=== PATIENT | male | born 1960 | race Caucasian/White ===

== ENCOUNTER 2016-07-05 12:53 | Inpatient (IN) | payer MEDICAID ==
[~2016-07-05] VITALS: Ht 180.3 cm; Wt 92.2 kg
[2016-07-05] MEDS ORDERED: OPTIRAY 350 100 ML VIAL HMH IV ONE (13:22)
[2016-07-05] MEDS ORDERED: ASPIRIN 300 MG SUPP RECTAL ONE (14:06)
[2016-07-05] MEDS ORDERED: SALINE FLUSH 10 ML FLUSH PRN (15:35)
[2016-07-05] MEDS ORDERED: GLUCAGON 1 MG VIAL IM PRN (15:35)
[2016-07-05] MEDS ORDERED: ONDANSETRON 4 MG VIAL IV PUSH PRN (15:35)
[2016-07-05] MEDS ORDERED: DEXTROSE 50% SYRINGE 50 ML IV PRN (15:35)
[2016-07-05] MEDS ORDERED: ACETAMINOPHEN 325 MG TAB PO PRN (15:35)
[2016-07-05 17:38] VITALS: BP_SYST 165; BP_SYST 190; TEMP 98.1
[2016-07-05 17:39] VITALS: BP_SYST 150; RESP 20
[2016-07-05] MEDS ORDERED: SODIUM CHLORIDE 0.45% 1,000 ML IV SCH (18:00)
[2016-07-05] MEDS ORDERED: amLODIPine 5 MG TAB PO SCH (18:04)
[2016-07-05 19:48] VITALS: BP_SYST 154; RESP 18; TEMP 98.1
[2016-07-05 20:00] VITALS: BP_SYST 171; RESP 18
[2016-07-05] MEDS: SALINE FLUSH 10 ML FLUSH SCH (20:29)
[2016-07-05] MEDS: Atorvastatin 20 MG TAB PO SCH (20:29)
[2016-07-05 22:00] VITALS: BP_SYST 174
[2016-07-06] VITALS (7 sets, daily range): BP systolic 138–163; RESP 18–20; TEMP 98.1–98.2
[2016-07-06] MEDS: LORAZEPAM 2 MG/ML VIAL IV PRN ×2 (00:01→22:48)
[2016-07-06] MEDS: SODIUM CHLORIDE 0.9% FLUSH BAG 500 ML IV SCH (04:35)
[2016-07-06] MEDS: SALINE FLUSH 10 ML FLUSH SCH ×2 (08:00→09:30)
[2016-07-06] MEDS: NICOTINE 21 MG/24 HR TRANSDERM SCH (09:00)
[2016-07-06] MEDS: Aspirin 325 MG TAB PO SCH (09:30)
[2016-07-06] MEDS: amLODIPine 10 MG TAB PO SCH (09:31)
[2016-07-06] MEDS: Atorvastatin 20 MG TAB PO SCH (20:27)
[2016-07-07] VITALS (11 sets, daily range): BP systolic 150–170; RESP 18–20; TEMP 97.4–98.7; Ht 180.3 cm; Wt 92.2 kg
[2016-07-07] MEDS: LORAZEPAM 2 MG/ML VIAL IV PRN (02:42)
[2016-07-07] MEDS: SODIUM CHLORIDE 0.9% FLUSH BAG 500 ML IV SCH (06:00)
[2016-07-07] MEDS: NICOTINE 21 MG/24 HR TRANSDERM SCH (09:00)
[2016-07-07] MEDS: Aspirin 325 MG TAB PO SCH (09:16)
[2016-07-07] MEDS: SALINE FLUSH 10 ML FLUSH SCH (09:16)
[2016-07-07] MEDS: amLODIPine 10 MG TAB PO SCH (09:18)
[2016-07-07] MEDS ORDERED: BISACODYL 10 MG SUPP RECTAL ONE (15:45)
== END 2016-07-07 19:30 | DRG 65 ==
LOC: ENRESERVDT → ENRESERVTM → ER 12:53 → ENPENDDIS 15:35 → EMR 15:35 → PCU 16:45
PROVIDERS: ADMIT Internal Medicine; ATTEND Internal Medicine
DX: I63.311 Cerebral infarction due to thrombosis of right middle cerebral artery (principal); G81.94 Hemiplegia, unspecified affecting left nondominant side; I10 Essential (primary) hypertension; E78.5 Hyperlipidemia, unspecified; M47.812 Spondylosis without myelopathy or radiculopathy, cervical region; R47.01 Aphasia; I25.10 Atherosclerotic heart disease of native coronary artery without angina pectoris; E11.9 Type 2 diabetes mellitus without complications
CPT/HCPCS: 70450; 70496; 70498; 70551; 71010; 80047; 80048; 80053; 80061; 81003; 82553; 82947; 84484; 85014; 85025; 85384; 85610; 85730; 93005; 93306; 93880; 99232; 99233; 99239

== ENCOUNTER 2016-07-07 19:49 | Emergency (ER) | payer MEDICAID ==
[2016-07-07] MEDS ORDERED: cloNIDine 0.1 MG TAB ONE (21:44)
== END 2016-07-07 23:44 | disposition home or self-care (01) ==
LOC: ER 19:49
DX: R00.0 Tachycardia, unspecified (principal); I25.10 Atherosclerotic heart disease of native coronary artery without angina pectoris; I11.9 Hypertensive heart disease without heart failure; Z86.73 Personal history of transient ischemic attack (TIA), and cerebral infarction without residual deficits; Z79.899 Other long term (current) drug therapy
CPT/HCPCS: 36415; 71010; 80053; 80061; 82553; 82947; 84484; 85025; 85384; 85610; 85730; 93005